=== PATIENT | female | born 1970 | race African-American/Black ===

== ENCOUNTER 2019-03-24 19:15 | Emergency (ER) | payer BC ==
[~2019-03-24] VITALS: Ht 165.1 cm; Wt 104.5 kg
[~2019-03-24 19:15] MED LIST: CARV12 PO; FLUO-191 PO; FURO40 PO; LOSA25TA41 PO; RIVA15T PO; SPIR25 PO; VITAD50000 PO; [UNRECOGNIZED DRUG - CODE] IV
[2019-03-24] MEDS ORDERED: PRED20 PO (19:58)
[2019-03-24] MEDS ORDERED: MYCO360T PO (19:58)
[2019-03-24] MEDS ORDERED: SIRO1 PO (19:58)
[2019-03-24] MEDS ORDERED: TACR1 PO (19:58)
[2019-03-24] MEDS ORDERED: CYCLOBENZAPRINE HCL 10 MG TABLET PO ONE (21:45)
[2019-03-24] MEDS ORDERED: LIDOCAINE 5% TRANSDERMAL PATCH TD ONE (21:45)
[2019-03-24 23:30] VITALS: BP 141/78
== END 2019-03-24 23:50 | disposition home or self-care (01) ==
LOC: EMS 19:15
DX: S13.4XXA Sprain of ligaments of cervical spine, initial encounter (principal); M54.6 Pain in thoracic spine; Z79.899 Other long term (current) drug therapy; V49.40XA Driver injured in collision with unspecified motor vehicles in traffic accident, initial encounter; Y93.89 Activity, other specified; Y92.411 Interstate highway as the place of occurrence of the external cause; Y99.8 Other external cause status
CPT/HCPCS: 72040; 72072